=== PATIENT | female | born 1960 | race Caucasian/White ===

== ENCOUNTER → 2016-06-19 | Outpatient (CLI) | payer BC ==
--- NOTE | 2016-06-19 10:19 | KCIC ---
PROCEDURE Bilateral digital screening mammogram. HISTORY 55-year-old female presents for screening mammography. TECHNIQUE Full field digital craniocaudal and mediolateral oblique views of both breasts are obtained. Computer-aided detection is applied. COMPARISON 07/04/2010 and 03/19/2009 FINDINGS Breast parenchymal composition: Level B - Scattered fibroglandular densities. There is no suspicious mass, calcification or architectural distortion within either breast. IMPRESSION BI-RADS category 2: Benign finding. Annual mammography is recommended. Mammography is not 100% sensitive in detecting breast cancer. Therefore, a self breast exam and a clinical breast exam are very important. A negative mammogram does not negate a clinically suspicious finding and should not result in a delay in biopsying a clinically suspicious abnormality. This patient's information has been entered into a reminder system for the patient to be notified with the results of this examination and a target date for her next mammograms. Electronically signed by: Penny Shipman (Jun 19, 2016 10:18:00)
== END | disposition home or self-care (01) ==
LOC: KCIC MAMMO 09:16
PROVIDERS: ATTEND Family Medicine
DX: Z12.31 Encounter for screening mammogram for malignant neoplasm of breast (principal)
CPT/HCPCS: G0202; 77067

== ENCOUNTER → 2018-06-23 | Outpatient (CLI) | payer BC ==
--- NOTE | 2018-06-23 13:25 | KCIC ---
Examination: MRI of the left shoulder without contrast HISTORY: History of left shoulder pain COMPARISON: None available Technique: Multiplanar, multisequence MR imaging of the left shoulder were performed without contrast. FINDINGS: The long head of the biceps tendon is within the bicipital groove. The attachment of the long the biceps tendon to the superior labral anchor grossly appears intact. The alignment of the subscapularis tendon appear intact. There is moderate increased T2 signal identified in the supraspinatus, infraspinatus tendons likely tendinosis. Small amount of fluid identified in the subacromial subdeltoid bursa. The acromion is type II. There is bursal sided fraying of the supraspinatus tendon. There is mild increased signal identified in the labrum likely secondary to mild degeneration.. Severe joint space loss identified in the glenohumeral joint likely degeneration. Moderate degenerative changes identified in the acromioclavicular joint. The muscle bulk grossly appears unremarkable. Fat is present within the rotator cuff interval. IMPRESSION: 1. Moderate tendinosis of the rotator cuff with mild bursal sided fraying of the supraspinatus tendon. Small amount of fluid identified in subacromial subdeltoid bursa likely mild bursitis. 2. Mild degenerative changes of the labrum. 3. Severe degenerative changes identified in the glenohumeral joint. Moderate degenerative changes acromioclavicular joint. Electronically signed by: Asim Matthews MD (06/23/2018 1:22 PM) [id number]
== END | disposition home or self-care (01) ==
LOC: KCIC MRI 12:18
PROVIDERS: ATTEND Physical Medicine & Rehabilitation
DX: M19.012 Primary osteoarthritis, left shoulder (principal)
CPT/HCPCS: 73221

== ENCOUNTER → 2018-06-23 | Outpatient (CLI) | payer BC ==
--- NOTE | 2018-06-23 15:28 | KCIC ---
Bilateral digital screening mammograms with 3-D tomosynthesis: Reason for examination: Routine screening. Comparison is made to previous studies dated 06/19/2016 and 07/04/2010. Bilateral mammograms in CC and oblique projections were obtained with 2-D imaging and 3-D tomosynthesis imaging on a Siemens Inspiration unit and reviewed on the workstation. Interpretation was made with the benefit of CAD. The skin and nipples show no abnormalities. No abnormal axillary lymph nodes are seen. The breast parenchyma shows scattered fatty and fibroglandular density. (Breast density: Category B.) There appears to be a small nodular parenchymal density in the lower outer quadrant of the left breast approximately 8 cm from the nipple and measuring approximately 4.2 mm in size. This can be further evaluated with ultrasound. There are no other dominant masses, suspicious calcifications or architectural distortion. Impression: Small 4.2 mm nodule which appears to lie in the lower outer quadrant of the left breast approximately 8 cm from the nipple. Recommend further evaluation with ultrasound. BI-RADS Category 0: Incomplete. Needs additional imaging evaluation. "Our facility is accredited by the [employer] Mammography [employer]." This patient's information has been entered into a reminder system for the patient to be notified with the results of her examination and a target date for the next mammogram. Electronically signed by: Valentina Hudson MD (06/23/2018 3:25 PM) [id number]
== END | disposition home or self-care (01) ==
LOC: KCIC MAMMO 12:09
PROVIDERS: ATTEND Family Medicine
DX: Z12.31 Encounter for screening mammogram for malignant neoplasm of breast (principal)
CPT/HCPCS: 77063; 77067

== ENCOUNTER → 2018-06-27 | Outpatient (CLI) | payer BC ==
--- NOTE | 2018-06-27 14:14 | KCIC ---
Left breast ultrasound HISTORY: Follow-up of left lower outer breast 4:00 position mammographic nodule. COMPARISON: Mammogram June 23, 2018. FINDINGS: Left breast 4:00 position 7 cm from nipple demonstrates a parallel 4 mm cystic lesion with numerous internal septations, this is concordant with the mammographic lesion in location, size and shape. This is typical of fibrocystic change and is considered probably benign. IMPRESSION: Small subcentimeter probably benign fibrocystic lesion of the left lower outer breast represents the mammographic lesion in question. Attention on follow-up left breast sonography in 6 months is advised. Continuing annual screening mammography. Patient information is registered in the reminder system for date of the next mammogram. BI-RADS Category 3: Probably benign Electronically signed by: Herb Sanchez MD (06/27/2018 2:05 PM) [email or web address]
== END | disposition home or self-care (01) ==
LOC: KCIC US 13:38
PROVIDERS: ATTEND Family Medicine
DX: R92.8 Other abnormal and inconclusive findings on diagnostic imaging of breast (principal)
CPT/HCPCS: 76641

== ENCOUNTER → 2020-04-16 | Outpatient (CLI) | payer BC ==
--- NOTE | 2020-04-16 10:48 | RAD ---
Examination: 1. Bilateral digital diagnostic mammogram. 2. Limited left breast ultrasound. INDICATION: 59-year-old woman due for six-month short-term follow-up probably benign cyst in the left breast, also due for bilateral screening mammography. COMPARISON: Limited left breast ultrasound of 06/27/2018, and bilateral screening mammograms of 06/23/19 19 and 06/19/2016 TECHNIQUE: CC and MLO views of both breasts with 2-D and 3-D technique were obtained and reviewed wit h computer-aided detection. Targeted ultrasound of the left breast in the lower inner quadrant was al so pursued in follow-up to the previous sonographic findings. FINDINGS: Heterogeneously dense breast parenchyma. No dominant mass, suspicious calcification or architectural distortion in either breast. Targeted ultrasound of the left breast at the 4:00 position 7 cm from the nipple shows interval resol ution of the probably benign cystic mass measuring 4 mm that was previously recommended for follow-up . IMPRESSION: Negative bilateral mammogram. No evidence of malignancy. BI-RADS Category 1 Negative Recommend return to routine screening next due in one year. Patient entered into a reminder system with targeted due date for next mammogram. Electronically signed by: Laure Martell MD (04/16/2020 10:45 AM) [id number]
== END ==
LOC: MAMMO 08:27
PROVIDERS: ATTEND Family Medicine
DX: Z09 Encounter for follow-up examination after completed treatment for conditions other than malignant neoplasm (principal)
CPT/HCPCS: 76641; 77066; G0279; 77062

== ENCOUNTER → 2020-11-07 | Day surgery (SDC) | payer BC ==
[~2020-11-07] VITALS: Ht 165.1 cm; Wt 83.0 kg
[~2020-11-07] MED LIST: ASPI-886 PO; ATOR20TA58 PO; BLAC540C4 PO; CALC-71 PO; CELE200C PO; CITA20TA6 PO; CYAN100016 SL; CYCL10TA2 PO; DOCU-153 PO; IPRA3AMP29 NEB; IV RINGERS,LACTATED 1000ML 1,000 ML IV SCH; LIDOCAINE 2% PF 5 ML VIAL. ONE; MAG30ORA2 PO; METO25TA4 PO; PANT40TA77 PO; PROPOFOL 10 MG/ML (20ML) VIAL. IV ONE; TIOT18CA IH; TRIA1TAB3 PO
[2020-11-07 09:02] VITALS: BP 133/80
[2020-11-07 10:52] VITALS: BP 137/82
--- NOTE | 2020-11-12 13:15 | PATHOLOGY ---
[facility] Accession Number: [id number] . 01 Material submitted: . PART A: small bowel - SMALL BOWEL BIOPSY PART B: stomach - ANTRUM/BODY BIOPSY. Modifiers: ANTRUM, body PART C: esophagus - DISTAL ESOPHAGUS BIOPSY. Modifiers: distal PART D: colon - RIGHT COLON BIOPSY. Modifiers: right PART E: colon - TRANSVERSE COLON POLYP. Modifiers: transverse PART F: colon - LEFT COLON BIOPSY. Modifiers: left PART G: rectum - RECTAL POLYPS . 01 Clinical history: . GERD, DIARRHEA EGD, COLON SCREENING . 02 Diagnosis: A. Small bowel biopsies: - No significant pathologic abnormalities. . B. Gastric biopsies, gastric body and gastric antrum: - Active chronic gastritis, mild to moderate, with small focus of intestinal metaplasia and with focal Helicobacter organisms identified. . C. Esophageal biopsies, distal esophagus: - Segments of hyperplastic squamous esophageal mucosa with focal contiguous gastric mucosa showing chronic inflammation, consistent with reflux esophagitis. - Focal presence of yeast and pseudohyphae consistent with Diana species. . D. Colonic mucosa, right colon biopsies: - No significant pathologic abnormalities. . E. Colon biopsy, transverse colon polyp: - Consistent with hyperplastic polyp/prominent mucosa fold. . F. Colonic mucosa, left colon biopsies: - No significant pathologic abnormalities. . G. Colorectal biopsies, rectal polyps: - Hyperplastic polyps. (JPM:leila; 11/11/2020) [facility] [place]12[place] 08 Local . 02 Comment: Sections of the small bowel biopsy reveal segments of duodenal mucosa. Where best oriented, the mucosal villi show no sprue-like changes or significant inflammatory changes. . Sections of the gastric biopsy reveal segments of gastric body and gastric antral mucosa showing mild to moderate active chronic inflammation. There is a small focus of intestinal metaplasia. A properly controlled immunoperoxidase stain for Helicobacter reveals focal presence of Helicobacter organisms. . Sections of the distal esophageal biopsy reveal segments of hyperplastic squamous esophageal mucosa with focal contiguous gastric mucosa showing mild to moderate chronic inflammation. The findings are consistent with reflux esophagitis. There is no evidence of Gongora's change, dysplasia, or malignancy. . Sections of the right colon and left colon random biopsies reveal segments of colonic mucosa. There is no evidence of a chronic destructive colitis, lymphocytic colitis, or collagenous colitis. . Sections of the transverse colon biopsy reveal a segment of colonic mucosa consistent with hyperplastic polyp/prominent mucosal fold. . Sections of the rectal biopsy reveal hyperplastic polyps. There are no adenomatous changes or evidence of malignancy. (JPM:leila; 11/11/2020) . . Special stain performed: Immunoperoxidase for Helicobacter on B1 . 02 Electronically signed: . Flo Morton MD, Pathologist NPI- [id number] . 01 Gross description: . A. Received in formalin labeled "Ng, Roselia small bowel biopsy" are multiple fragments of de [place] santos-brown soft tissue measuring in aggregate 1.7 x 0.4 x 0.3 cm. The specimen is submitted entirely in A1. . B. Received in formalin labeled "Ng, Roselia antrum/body biopsy" are multiple fragments of [place]-brown soft tissue measuring in aggregate 1.6 x 0.5 x 0.3 cm. The specimen is submitted entirely in B1. . C. Received in formalin labeled "Ng, Roselia distal esophagus biopsy" are multiple fragments of [place]-brown soft tissue measuring in aggregate 1.4 x 0.6 x 0.2 cm. The specimen is submitted entirely in C1. . D. Received in formalin labeled "Ng, Roselia right colon biopsy" are multiple fragments of [place]-brown soft tissue measuring in aggregate 1.2 x 0.5 x 0.3 cm. The specimen is submitted entirely in D1. . E. Received in formalin labeled "Ng, Roselia transverse colon polyp" is a fragment of [place]-brown soft tissue measuring 0.7 x 0.5 x 0.3 cm. The specimen is submitted entirely in E1. . F. Received in formalin labeled "Ng, Roselia left colon biopsy" are multiple fragments of [place]-brown soft tissue measuring in aggregate 1.2 x 0.4 x 0.3 cm. The specimen is submitted entirely in F1. . G. Received in formalin labeled "Ng, Roselia rectal polyps" is a fragment of [place]ant[place]-brown soft tissue measuring 0.6 x 0.4 x 0.3 cm. The specimen is submitted entirely in G1. ([facility]; 11/08/2020) . GZA/GZA 11/11/2020 0910 Local . 02 Pathologist provided ICD-10: K29.50, B96.81, K20.80, K62.1 . 02 CPT . 477959, 174801, 890534, [id number], 835138, [id number], [id number], [id number] Specimen Comment: A courtesy copy of this report has been sent to [phone], [phone] Specimen Comment: [id number] Specimen Comment: Report sent to / DR SURESH Performed at: 01 [facility] [address], [place] [id number] MD Dontae Martinez MD Phone: [phone] Performed at: 02 [facility] [address], [place] [id number] MD Flo Morton MD Phone: [phone]
== END | disposition home or self-care (01) ==
LOC: ENDOS 08:37
PROVIDERS: ATTEND Internal Medicine Gastroenterology
DX: R19.4 Change in bowel habit (principal); K52.9 Noninfective gastroenteritis and colitis, unspecified; K21.00 Gastro-esophageal reflux disease with esophagitis, without bleeding; K57.30 Diverticulosis of large intestine without perforation or abscess without bleeding; K64.0 First degree hemorrhoids; K29.50 Unspecified chronic gastritis without bleeding; B96.81 Helicobacter pylori [H. pylori] as the cause of diseases classified elsewhere; K62.1 Rectal polyp; K63.5 Polyp of colon; K63.89 Other specified diseases of intestine; K31.89 Other diseases of stomach and duodenum; I10 Essential (primary) hypertension; E78.00 Pure hypercholesterolemia, unspecified; J43.9 Emphysema, unspecified; M19.90 Unspecified osteoarthritis, unspecified site; F41.9 Anxiety disorder, unspecified; Z90.710 Acquired absence of both cervix and uterus; Z98.890 Other specified postprocedural states; Z79.82 Long term (current) use of aspirin; Z87.891 Personal history of nicotine dependence; Z72.89 Other problems related to lifestyle
CPT/HCPCS: 43239; 45380; 88305; 88342; J2704; 45378